=== PATIENT | male | born 2000 | race Caucasian/White ===

== ENCOUNTER 2022-05-13 11:50 | Emergency (ER) | payer OTHER ==
[~2022-05-13] VITALS: Ht 182.9 cm; Wt 68.4 kg
[2022-05-13 11:51] VITALS: BP 129/76
[2022-05-13] MEDS ORDERED: LIDOCAINE 1% MDV 20ML VIAL INJ ONE (14:30)
[2022-05-13] MEDS ORDERED: ACETAMINOPHEN 500 MG TAB PO ONE (14:30)
[2022-05-13] MEDS ORDERED: IBUPROFEN 800 MG TAB PO ONE (14:30)
[2022-05-13] MEDS ORDERED: CEPH500C PO (14:41)
[2022-05-13] MEDS ORDERED: PERC5TAB12 PO (15:09)
[2022-05-13] MEDS ORDERED: IBUP80TA PO (15:09)
== END 2022-05-13 15:23 | disposition home or self-care (01) ==
LOC: M ED 11:50
DX: S60.031A Contusion of right middle finger without damage to nail, initial encounter (principal); S61.302A Unspecified open wound of right middle finger with damage to nail, initial encounter; W23.1XXA Caught, crushed, jammed, or pinched between stationary objects, initial encounter; R20.9 Unspecified disturbances of skin sensation; Z79.899 Other long term (current) drug therapy; Y92.9 Unspecified place or not applicable; Y93.89 Activity, other specified; Y99.1 Military activity

== ENCOUNTER 2022-07-11 10:32 | Emergency (ER) | payer OTHER ==
[~2022-07-11] VITALS: Ht 182.9 cm; Wt 67.7 kg
[~2022-07-11 10:32] MED LIST: CEPH500C PO; IBUP80TA PO; PERC5TAB12 PO
[2022-07-11] MEDS ORDERED: CEPH500C PO (14:45)
[2022-07-11] MEDS ORDERED: NEOSPORIN OINT 0.9 GM PKT TOP ONE (14:45)
[2022-07-11] MEDS ORDERED: CEPHALEXIN 500 MG CAP PO ONE (14:45)
[2022-07-11] MEDS ORDERED: BACIOIN5 OP (14:58)
[2022-07-11 15:01] VITALS: BP 119/63
== END 2022-07-11 15:07 | disposition home or self-care (01) ==
LOC: M ED 10:32
DX: S61.302A Unspecified open wound of right middle finger with damage to nail, initial encounter (principal); L60.1 Onycholysis; W23.0XXA Caught, crushed, jammed, or pinched between moving objects, initial encounter; Y92.9 Unspecified place or not applicable; Y93.89 Activity, other specified; Y99.1 Military activity

== ENCOUNTER 2022-07-17 15:13 | Inpatient (IN) | payer OTHER ==
[~2022-07-17] VITALS: Ht 182.9 cm; Wt 64.3 kg
[~2022-07-17 15:13] MED LIST changes: +BACIOIN5 OP
[2022-07-17 16:07] LABS: HEMATOCRIT 41.4 % (42.0-52.0); HEMOGLOBIN 14.4 g/dl (13.5-17.5); MEAN CORPUSCULAR HEMOGLOBIN 31.3 pg (27.0-33.0); MEAN CORPUSCULAR HGB CONC 34.8 g/dl (32.0-36.5); PLATELET COUNT, AUTOMATED 236 10^3/uL (150-450); WHITE BLOOD COUNT 6.3 10^3/uL (4.0-10.0)
[2022-07-17 16:36] LABS: AMPHETAMINES LEVEL URINE NEGATIVE (NEGATIVE); BARBITURATES URINE NEGATIVE (NEGATIVE); BENZODIAZEPINES URINE NEGATIVE (NEGATIVE); COCAINE METABOLITE URINE NEGATIVE (NEGATIVE)
[2022-07-17 16:37] LABS: CANNABINOIDS URINE NEGATIVE (NEGATIVE); METHADONE URINE NEGATIVE (NEGATIVE); OPIATES URINE NEGATIVE (NEGATIVE); PHENCYCLIDINE URINE NEGATIVE (NEGATIVE)
[2022-07-17 16:38] LABS: ETHYL ALCOHOL (ETHANOL) 0.003 % (0.000-0.010)
[2022-07-17 16:39] LABS: ACETAMINOPHEN LEVEL < 2.0 UG/ML (10.0-20.0); SALICYLATE LEVEL < 3.0 MG/DL (<30)
[2022-07-17 16:40] LABS: ALBUMIN 4.3 G/DL (3.2-5.2); ALKALINE PHOSPHATASE 90 U/L (46-116); ALT/SGPT 11 U/L (7.0-40); AST/SGOT 16 U/L (<34); BILIRUBIN,DIRECT 0.6 MG/DL (<0.4); BILIRUBIN,TOTAL 1.8 MG/DL (0.3-1.2); BLOOD UREA NITROGEN 12 MG/DL (9-23); CALCIUM LEVEL 9.9 MG/DL (8.5-10.1); CARBON DIOXIDE LEVEL 29 MMOL/L (20-31); CHLORIDE LEVEL 104 MMOL/L (98-107); CREATININE FOR GFR 0.84 MG/DL (0.70-1.30); GLOMERULAR FILTRATION RATE > 60.0 (>60); GLUCOSE, FASTING 90 MG/DL (60-100); SODIUM LEVEL 141 MMOL/L (136-145); TOTAL PROTEIN 7.2 G/DL (5.7-8.2)
[2022-07-17 16:52] LABS: RSV AMPLIFICATION NEGATIVE (NEGATIVE)
[2022-07-17 17:07] LABS: THYROID STIMULATING HORMONE 1.151 uIU/ML (0.55-4.78)
[2022-07-17] MEDS ORDERED: CEPH500C PO (23:04)
[2022-07-17] MEDS ORDERED: MUPI2OI EXT (23:04)
[2022-07-17] MEDS ORDERED: CEPH500T PO (23:04)
[2022-07-17] MEDS ORDERED: MULTCHW12 PO (23:04)
[2022-07-17] MEDS ORDERED: HOME MED LIST COMPLETE! XX SCH (23:05)
[2022-07-18] MEDS: NICOTINE 21MG/24HR 1 EA TRANSDERMAL TD SCH (09:00)
[2022-07-18] MEDS: MUPIROCIN 2% OINT 22 GM TUBE EXT SCH ×2 (09:00→21:00)
[2022-07-18] MEDS ORDERED: MOM 30ML SUSPENSION UDC PO PRN (12:30)
[2022-07-18] MEDS ORDERED: MAALOX 30 ML SUSP *UDC PO PRN (12:30)
[2022-07-18] MEDS ORDERED: IBUPROFEN 400MG TAB PO PRN (12:30)
[2022-07-18 13:24] VITALS: BP 122/76
[2022-07-19 06:01] VITALS: BP 105/58
[2022-07-19] MEDS: MUPIROCIN 2% OINT 22 GM TUBE EXT SCH ×2 (09:00→21:00)
[2022-07-19] MEDS: NICOTINE 21MG/24HR 1 EA TRANSDERMAL TD SCH (09:00)
[2022-07-19] MEDS ORDERED: ACETAMINOPHEN TAB 650MG DOSE (2X325MG) PO PRN (10:45)
[2022-07-19] MEDS: SERTRALINE HCL 25 MG TABLET PO SCH (13:30)
[2022-07-19] MEDS: buPROPion **XL** TABLET 150MG (WELLBUTRIN XL) PO SCH (13:30)
[2022-07-19] MEDS: CEPHALEXIN 500 MG CAP PO SCH ×2 (13:30→21:42)
[2022-07-19 18:31] VITALS: BP 142/86
[2022-07-20] MEDS: CEPHALEXIN 500 MG CAP PO SCH ×3 (06:06→22:23)
[2022-07-20 06:34] VITALS: BP 119/57
[2022-07-20] MEDS: NICOTINE 21MG/24HR 1 EA TRANSDERMAL TD SCH (09:00)
[2022-07-20] MEDS: SERTRALINE HCL 25 MG TABLET PO SCH (10:46)
[2022-07-20] MEDS: buPROPion **XL** TABLET 150MG (WELLBUTRIN XL) PO SCH (10:46)
[2022-07-20] MEDS: MUPIROCIN 2% OINT 22 GM TUBE EXT SCH ×2 (12:41→20:33)
[2022-07-20 19:29] VITALS: BP 145/83
[2022-07-21] MEDS: CEPHALEXIN 500 MG CAP PO SCH ×3 (05:54→21:27)
[2022-07-21 06:19] VITALS: BP 108/59
[2022-07-21 06:23] VITALS: BP 130/78
[2022-07-21] MEDS: NICOTINE 21MG/24HR 1 EA TRANSDERMAL TD SCH (09:00)
[2022-07-21] MEDS: MUPIROCIN 2% OINT 22 GM TUBE EXT SCH ×2 (09:53→21:27)
[2022-07-21] MEDS: buPROPion **XL** TABLET 150MG (WELLBUTRIN XL) PO SCH (09:53)
[2022-07-21] MEDS: SERTRALINE HCL 25 MG TABLET PO SCH (09:53)
[2022-07-21 17:15] VITALS: BP 116/56
[2022-07-22 06:52] VITALS: BP 104/58
[2022-07-22] MEDS: buPROPion **XL** TABLET 150MG (WELLBUTRIN XL) PO SCH (09:39)
[2022-07-22] MEDS: MUPIROCIN 2% OINT 22 GM TUBE EXT SCH ×2 (09:39→21:00)
[2022-07-22] MEDS: SERTRALINE HCL 50 MG TAB PO SCH (09:39)
[2022-07-22 17:34] VITALS: BP 118/62
[2022-07-23 06:27] VITALS: BP 126/65
[2022-07-23] MEDS: buPROPion **XL** TABLET 150MG (WELLBUTRIN XL) PO SCH (08:52)
[2022-07-23] MEDS: SERTRALINE HCL 50 MG TAB PO SCH (08:53)
[2022-07-23] MEDS: MUPIROCIN 2% OINT 22 GM TUBE EXT SCH ×3 (08:53→20:50)
[2022-07-23 17:37] VITALS: BP 123/68
[2022-07-23] MEDS: traZODone 50 MG TAB PO PRN (22:24)
[2022-07-24 06:27] VITALS: BP 105/58
[2022-07-24] MEDS: buPROPion **XL** TABLET 150MG (WELLBUTRIN XL) PO SCH (09:07)
[2022-07-24] MEDS: MUPIROCIN 2% OINT 22 GM TUBE EXT SCH ×2 (09:08→19:43)
[2022-07-24] MEDS: SERTRALINE HCL 25 MG TABLET PO SCH (09:08)
[2022-07-24] MEDS ORDERED: SERTRALINE HCL 25 MG TABLET PO ONE (11:15)
[2022-07-24] MEDS: PROPRANOLOL 10 MG TAB PO SCH ×3 (12:11→23:13)
[2022-07-24 17:31] VITALS: BP 103/62
[2022-07-24] MEDS: traZODone 50 MG TAB PO PRN (23:02)
[2022-07-25] MEDS: PROPRANOLOL 10 MG TAB PO SCH ×3 (06:00→18:00)
[2022-07-25 06:21] VITALS: BP 123/58
[2022-07-25] MEDS: SERTRALINE HCL 25 MG TABLET PO SCH (08:22)
[2022-07-25] MEDS: buPROPion **XL** TABLET 150MG (WELLBUTRIN XL) PO SCH (08:22)
[2022-07-25] MEDS: MUPIROCIN 2% OINT 22 GM TUBE EXT SCH ×2 (08:23→21:36)
[2022-07-25 16:51] VITALS: BP 110/56
[2022-07-25] MEDS: traZODone 50 MG TAB PO PRN (21:36)
[2022-07-26] MEDS: PROPRANOLOL 10 MG TAB PO SCH ×5 (05:22→23:20)
[2022-07-26 06:34] VITALS: BP 102/58
[2022-07-26] MEDS: buPROPion **XL** TABLET 150MG (WELLBUTRIN XL) PO SCH (08:33)
[2022-07-26] MEDS: MUPIROCIN 2% OINT 22 GM TUBE EXT SCH ×2 (08:33→20:56)
[2022-07-26] MEDS: SERTRALINE HCL 25 MG TABLET PO SCH (08:33)
[2022-07-26 16:03] VITALS: BP 124/63
[2022-07-26] MEDS: traZODone 50 MG TAB PO PRN (20:56)
[2022-07-27] MEDS: PROPRANOLOL 10 MG TAB PO SCH ×4 (06:00→23:20)
[2022-07-27 06:19] VITALS: BP 109/56
[2022-07-27] MEDS: SERTRALINE 100 MG TAB PO SCH (09:27)
[2022-07-27] MEDS: MUPIROCIN 2% OINT 22 GM TUBE EXT SCH ×2 (09:27→21:56)
[2022-07-27] MEDS: buPROPion **XL** TABLET 150MG (WELLBUTRIN XL) PO SCH (09:28)
[2022-07-27 18:10] VITALS: BP 131/76
[2022-07-27] MEDS: traZODone 50 MG TAB PO PRN (21:56)
[2022-07-27] MEDS: ARIPiprazole 2 MG TAB PO SCH (21:56)
[2022-07-28 05:53] VITALS: BP 108/52
[2022-07-28] MEDS: PROPRANOLOL 10 MG TAB PO SCH ×3 (06:00→17:58)
[2022-07-28] MEDS: SERTRALINE 100 MG TAB PO SCH (08:35)
[2022-07-28] MEDS: busPIRone 10 MG TAB PO SCH ×2 (08:35→21:59)
[2022-07-28] MEDS: MUPIROCIN 2% OINT 22 GM TUBE EXT SCH ×2 (08:35→21:59)
[2022-07-28] MEDS: buPROPion **XL** TABLET 150MG (WELLBUTRIN XL) PO SCH (08:35)
[2022-07-28 16:22] VITALS: BP 118/66
[2022-07-28] MEDS: traZODone 50 MG TAB PO PRN (21:59)
[2022-07-28] MEDS: ARIPiprazole 2 MG TAB PO SCH (21:59)
[2022-07-29] MEDS: PROPRANOLOL 10 MG TAB PO SCH ×5 (06:14→23:06)
[2022-07-29 06:41] VITALS: BP 119/62
[2022-07-29] MEDS: busPIRone 10 MG TAB PO SCH ×2 (09:00→21:33)
[2022-07-29] MEDS: SERTRALINE 100 MG TAB PO SCH (09:01)
[2022-07-29] MEDS: buPROPion **XL** TABLET 150MG (WELLBUTRIN XL) PO SCH (09:01)
[2022-07-29] MEDS: MUPIROCIN 2% OINT 22 GM TUBE EXT SCH ×2 (09:01→21:34)
[2022-07-29] MEDS: traZODone 50 MG TAB PO PRN (21:33)
[2022-07-29] MEDS: ARIPiprazole 2 MG TAB PO SCH (21:33)
[2022-07-30] MEDS: PROPRANOLOL 10 MG TAB PO SCH ×4 (06:00→22:59)
[2022-07-30 06:33] VITALS: BP 108/58
[2022-07-30] MEDS: buPROPion **XL** TABLET 150MG (WELLBUTRIN XL) PO SCH (08:17)
[2022-07-30] MEDS: SERTRALINE 100 MG TAB PO SCH (08:17)
[2022-07-30] MEDS: MUPIROCIN 2% OINT 22 GM TUBE EXT SCH ×2 (08:17→21:00)
[2022-07-30] MEDS: busPIRone 10 MG TAB PO SCH ×2 (08:17→21:14)
[2022-07-30 16:16] VITALS: BP 127/68
[2022-07-30 16:17] VITALS: BP 120/72
[2022-07-30] MEDS: ARIPiprazole 2 MG TAB PO SCH (21:14)
[2022-07-30] MEDS: traZODone 50 MG TAB PO PRN (21:14)
[2022-07-31] MEDS: PROPRANOLOL 10 MG TAB PO SCH ×4 (05:35→23:13)
[2022-07-31 05:52] VITALS: BP 105/59
[2022-07-31] MEDS: busPIRone 10 MG TAB PO SCH ×2 (08:59→22:08)
[2022-07-31] MEDS: buPROPion **XL** TABLET 150MG (WELLBUTRIN XL) PO SCH (08:59)
[2022-07-31] MEDS: SERTRALINE 100 MG TAB PO SCH (08:59)
[2022-07-31] MEDS: MUPIROCIN 2% OINT 22 GM TUBE EXT SCH ×2 (08:59→21:00)
[2022-07-31 19:19] VITALS: BP 132/81
[2022-07-31] MEDS: ARIPiprazole 2 MG TAB PO SCH (22:08)
[2022-07-31] MEDS: traZODone 50 MG TAB PO PRN (22:08)
[2022-08-01] MEDS: PROPRANOLOL 10 MG TAB PO SCH ×3 (05:36→18:44)
[2022-08-01 06:16] VITALS: BP 100/53
[2022-08-01] MEDS: busPIRone 10 MG TAB PO SCH ×2 (08:31→20:54)
[2022-08-01] MEDS: MUPIROCIN 2% OINT 22 GM TUBE EXT SCH ×2 (08:31→20:54)
[2022-08-01] MEDS: SERTRALINE 100 MG TAB PO SCH (08:31)
[2022-08-01] MEDS: buPROPion **XL** TABLET 150MG (WELLBUTRIN XL) PO SCH (08:31)
[2022-08-01 18:33] VITALS: BP 120/59
[2022-08-01] MEDS: ARIPiprazole 2 MG TAB PO SCH (20:54)
[2022-08-02] MEDS: PROPRANOLOL 10 MG TAB PO SCH ×5 (00:22→23:17)
[2022-08-02 06:42] VITALS: BP 123/64
[2022-08-02] MEDS: GABAPENTIN 100 MG CAP PO SCH ×3 (08:26→20:25)
[2022-08-02] MEDS: MUPIROCIN 2% OINT 22 GM TUBE EXT SCH ×2 (08:27→20:24)
[2022-08-02] MEDS: SERTRALINE 100 MG TAB PO SCH (08:27)
[2022-08-02] MEDS: busPIRone 10 MG TAB PO SCH ×2 (08:27→20:24)
[2022-08-02] MEDS: buPROPion **XL** TABLET 150MG (WELLBUTRIN XL) PO SCH (08:27)
[2022-08-02 19:04] VITALS: BP 123/79
[2022-08-03] MEDS: PROPRANOLOL 10 MG TAB PO SCH ×4 (06:03→23:01)
[2022-08-03 06:43] VITALS: BP 133/74
[2022-08-03] MEDS: GABAPENTIN 100 MG CAP PO SCH ×3 (08:47→20:09)
[2022-08-03] MEDS: SERTRALINE 100 MG TAB PO SCH (08:47)
[2022-08-03] MEDS: buPROPion **XL** TABLET 150MG (WELLBUTRIN XL) PO SCH (08:47)
[2022-08-03] MEDS: busPIRone 10 MG TAB PO SCH ×2 (08:47→20:09)
[2022-08-03] MEDS: MUPIROCIN 2% OINT 22 GM TUBE EXT SCH ×2 (08:48→20:09)
[2022-08-03 19:04] VITALS: BP 117/75
[2022-08-03 23:01] VITALS: BP_DIAS 67
[2022-08-04 06:33] VITALS: BP_SYST 126
[2022-08-04] MEDS: PROPRANOLOL 10 MG TAB PO SCH (06:33)
[2022-08-04 06:46] VITALS: BP 126/69
[2022-08-04] MEDS: busPIRone 10 MG TAB PO SCH (08:31)
[2022-08-04] MEDS: SERTRALINE 100 MG TAB PO SCH (08:31)
[2022-08-04] MEDS: buPROPion **XL** TABLET 150MG (WELLBUTRIN XL) PO SCH (08:31)
[2022-08-04] MEDS: MUPIROCIN 2% OINT 22 GM TUBE EXT SCH (08:32)
[2022-08-04] MEDS: GABAPENTIN 100 MG CAP PO SCH (08:32)
[2022-08-04] MEDS ORDERED: TRAZ-252 PO (09:05)
[2022-08-04] MEDS ORDERED: BUSP10TA PO (09:05)
[2022-08-04] MEDS ORDERED: GABA-1171 PO (09:05)
[2022-08-04] MEDS ORDERED: ZOLO100T PO (09:05)
[2022-08-04] MEDS ORDERED: PROP10TA56 PO (09:05)
[2022-08-04] MEDS ORDERED: ABIL1TAB11 PO (09:05)
[2022-08-04] MEDS ORDERED: BUPR150T12 PO (09:05)
== END 2022-08-04 11:10 | disposition home or self-care (01) | DRG 885 ==
LOC: EDBD 15:13 → M ED 15:13 → M ED INP 07-18 12:27 → M PSY 07-18 13:21
PROVIDERS: ADMIT Psychiatry & Neurology Psychiatry; ATTEND Student in an Organized Health Care Education/Training Program
DX: F33.1 Major depressive disorder, recurrent, moderate (principal); R45.851 Suicidal ideations; R44.0 Auditory hallucinations; F60.89 Other specific personality disorders; F44.81 Dissociative identity disorder; F43.21 Adjustment disorder with depressed mood; Z79.2 Long term (current) use of antibiotics; Z79.899 Other long term (current) drug therapy; Z20.822 Contact with and (suspected) exposure to COVID-19; S61.302D Unspecified open wound of right middle finger with damage to nail, subsequent encounter; Z81.4 Family history of other substance abuse and dependence; R44.1 Visual hallucinations; Z91.52 Personal history of nonsuicidal self-harm; Z56.6 Other physical and mental strain related to work; Z62.810 Personal history of physical and sexual abuse in childhood; Z62.811 Personal history of psychological abuse in childhood